=== PATIENT | male | born 1960 | race American Indian/Alaskan Native ===

== ENCOUNTER 2016-11-20 19:56 | Inpatient (IN) | payer MEDICARE ==
[2016-11-20 21:56] LABS: BASO % 0.5 % (0.0-2.0); EOS # 0.1 K/uL (0.0-0.7); EOS % 1.5 % (0.0-4.0); HEMATOCRIT 45.2 % (35.0-51.0); LYMPH # 1.8 K/uL (1.0-4.3); LYMPH % 24.4 % (20.0-40.0); MEAN CELL VOLUME 86.1 fL (80.0-94.0); MEAN CORPUSCULAR HEMOGLOBIN 28.1 pg (27.0-31.0); MEAN CORPUSCULAR HGB CONC 32.6 g/dL (33.0-37.0); MEAN PLATELET VOLUME 9.7 fL (7.2-11.7); MONO # 0.5 K/uL (0.0-0.8); MONO % 7.1 % (0.0-10.0); RED CELL DISTRIBUTION WIDTH 13.9 % (11.5-14.5); WHITE BLOOD COUNT 7.2 K/uL (4.8-10.8)
[2016-11-20 22:02] LABS: CHLORIDE 99 mmol/L (98-107); SODIUM 134 mmol/L (132-148)
[2016-11-20 22:03] LABS: POTASSIUM 4.8 mmol/L (3.6-5.2)
[2016-11-20 22:04] LABS: GFR AFRICAN-AMERICAN 58
[2016-11-20 22:05] LABS: ALB/GLOB RATIO 1.5 (1.0-2.1); ALKALINE PHOSPHATASE 65 U/L (38-126); AST/SGOT 24 U/L (17-59); BILIRUBIN,TOTAL 0.4 mg/dL (0.2-1.3); BLOOD UREA NITROGEN 26 mg/dL (9-20); CARBON DIOXIDE 23 mmol/L (22-30); GLUCOSE,RANDOM 133 mg/dL (75-110); TOTAL PROTEIN 7.9 g/dL (6.3-8.3)
[2016-11-20 22:06] LABS: ALT/SGPT 23 U/L (21-72); CALCIUM 9.6 mg/dl (8.6-10.4)
[2016-11-20] MEDS ORDERED: Home Med 1 UNIT (Pravastatin Sodium [Pravastatin Sodium] 40 MG) PO SCH (23:00)
--- NOTE | 2016-11-20 23:29 | C.PDOC ---
History Of Present Illness 56 y/o male presents to ED with complaint of an episode of chest pain just prior to arrival. Patient states he was watching tv when he suddenly developed chest pain, described as sub-sternal pressure, and became diaphoretic. Patient states he began to feel lightheaded and felt like he was going to pass out. Patient's called EMS and he notes symptoms resolved by the time he arrived to ER. Denies history of chest pain in the past. Patient states he takes aspirin daily, including today. Otherwise, denies fever, chills, shortness of breath, dyspnea, nausea, vomiting, or other associated symptoms. Time Seen by Provider: 11/20/16 22:24 Chief Complaint (Nursing): Chest Pain History Per: Patient History/Exam Limitations: no limitations Onset/Duration Of Symptoms: Days Current Symptoms Are (Timing): Better Quality: Pressure, "Pain" Associated Symptoms: Diaphoresis. denies: Nausea, Dyspnea Recent travel outside of the [place]: No Past Medical History Reviewed: Historical Data, Nursing Documentation, Vital Signs Vital Signs: Last Vital Signs Temp 98.6 F 11/20/16 20:03 Pulse 82 11/20/16 20:03 Resp 20 11/20/16 20:03 BP 136/86 11/20/16 20:03 Pulse Ox 96 11/20/16 23:36 - Medical History PMH: Diabetes, HTN, Hypercholesterolemia Family History: States: Unknown Family Hx - Social History Hx Tobacco Use: No Hx Alcohol Use: Yes (occasionally) Hx Substance Use: No - Immunization History Hx Tetanus Toxoid Vaccination: No Hx Influenza Vaccination: Yes (04/24/2015) Hx Pneumococcal Vaccination: Yes (2012) Review Of Systems Except As Marked, All Systems Reviewed And Found Negative. Constitutional: Negative for: Fever, Chills Cardiovascular: Positive for: Chest Pain. Negative for: Palpitations Respiratory: Negative for: Cough, Shortness of Breath, Wheezing Gastrointestinal: Negative for: Nausea, Vomiting Musculoskeletal: Negative for: Arm Pain Skin: Negative for: Rash Neurological: Negative for: Headache, Dizziness Physical Exam - Physical Exam Appears: Non-toxic, No Acute Distress Skin: Warm, Dry Head: Atraumatic, Normacephalic Chest: Symmetrical, No Tenderness Cardiovascular: Rhythm Regular, No Murmur Respiratory: Normal Breath Sounds, No Rales, No Rhonchi, No Wheezing Gastrointestinal/Abdominal: Soft, No Tenderness Back: Normal Inspection Extremity: Normal ROM, Capillary Refill (< 2 sec. ) Neurological/Psych: Oriented x3, Normal Speech, Normal Cognition ED Course And Treatment - Laboratory Results Result Diagrams: 11/20/16 21:47 11/20/16 21:47 ECG: Interpreted By Me ECG Rhythm: Sinus Rhythm Interpretation Of ECG: LVH Rate From EC (bpm) O2 Sat by Pulse Oximetry: 96 Pulse Ox Interpretation: Normal - Radiology CXR: Interpreted by Me CXR Interpretation: Yes: No Acute Disease Progress Note: CxR, EKG, and bloodwork ordered. Case discussed with Dr. Santoro , who agrees with plan, placed in observation. Disposition - Disposition Disposition: HOSPITALIZED Disposition Time: 10:30 Condition: FAIR - Clinical Impression Clinical Impression: Chest pain - Scribe Statement The provider has reviewed the documentation as recorded by the Gersonibnehemias Mary Provider Scribe Attestation: All medical record entries made by the Scribe were at my direction and personally dictated by me. I have reviewed the chart and agree that the record accurately reflects my personal performance of the history, physical exam, medical decision making, and the department course for this patient. I have also personally directed, reviewed, and agree with the discharge instructions and disposition.
[2016-11-21] MEDS ORDERED: (Novolog) Insulin Aspart, Recombinant 100 u/ml 10 ml vial ONE ×2 (07:48→11:56)
[2016-11-21] MEDS: (Novolog) Insulin Aspart, Recombinant 100 u/ml 10 ml vial SC SCH ×4 (07:49→22:38)
--- NOTE | 2016-11-21 08:15 | RAD ---
PROCEDURE: CHEST RADIOGRAPH, 1 VIEW HISTORY: chest pain COMPARISON: None available. FINDINGS: LUNGS: Clear. PLEURA: No pneumothorax or pleural fluid seen. CARDIOVASCULAR: Normal. OSSEOUS STRUCTURES: No significant abnormalities. VISUALIZED UPPER ABDOMEN: Normal. OTHER FINDINGS: None. IMPRESSION: No active disease.
[2016-11-21] MEDS ORDERED: Ammonium Lactate 12% Lotion (225 g) EXT SCH (10:00)
[2016-11-21] MEDS ORDERED: TRAVOPROST OD SCH (10:00)
[2016-11-21] MEDS ORDERED: (Lantus) Insulin Glargine, Recombinant SC ONE (10:22)
[2016-11-21] MEDS: Enoxaparin 40 mg Syringe SC SCH (10:25)
[2016-11-21] MEDS: (Lantus) Insulin Glargine, Recombinant SC SCH (10:30)
[2016-11-21] MEDS: Pantoprazole 40 mg EC Tab PO SCH (10:31)
--- NOTE | 2016-11-21 17:24 | CARD ---
APPROVED REPORT EKG Measurement Heart [id number] <Conclusion> Normal sinus rhythm Minimal voltage criteria for LVH, may be normal variant Nonspecific T wave abnormality Abnormal ECG
[2016-11-21] MEDS: Ammonium Lactate 12% Lotion (225 g) EXT SCH (18:00)
[2016-11-21] MEDS: Latanoprost 2.5 ml Opht Soln OD SCH (22:37)
--- NOTE | 2016-11-21 23:13 | CP.PCM.HP ---
History of Present Illness - History of Present Illness History of Present Illness: CC: Left sided chest pain HPI: pt is a 56 year old AA male with h/o diabtes, HTN, Hyperlipidemia. 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 he malcom any couh, sore throat, tingling nmbness, headache, chane in urinary and bowel habbits Present on Admission - Present on Admission Any Indicators Present on Admission: No Review of Systems - Review of Systems Systems not reviewed;Unavailable: Acuity of Condition - Constitutional Constitutional: Fatigue, Lethargy, Malaise - EENT Eyes: absent: As Per HPI, Blind Spots, Blurred Vision, Change in Vision, Decreased Night Vision, Diplopia, Discharge, Dry Eye, Exophthalmos, Floaters, Irritation, Itchy Eyes, Loss of Peripheral Vision, Pain, Photophobia, Requires Corrective Lenses, Sees Flashes, Spots in Vision, Tunnel Vision, Other Visual Disturbances, Loss of Vision, Other Nose/Mouth/Throat: absent: As Per HPI, Epistaxis, Nasal Congestion, Nasal Discharge, Nasal Obstruction, Nasal Trauma, Nose Pain, Post Nasal Drip, Sinus Pain, Sinus Pressure, Bleeding Gums, Change in Voice, Dental Pain, Dry Mouth, Dysphagia, Halitosis, Hoarsness, Lip Swelling, Mouth Lesions, Mouth Pain, Odynophagia, Sore Throat, Throat Swelling, Tongue Swelling, Facial Pain, Neck Pain, Neck Mass, Other - Cardiovascular Cardiovascular: Chest Pain, Diaphoresis, Dyspnea, Pain Radiating to Arm/Neck/Jaw - Respiratory Respiratory: absent: As Per HPI, Cough, Dyspnea, Hemoptysis, Dyspnea on Exertion , Wheezing, Snoring, Stridor, Pain on Inspiration, Chest Congestion, Excessive Mucous Production, Change in Mucous Color, Pain with Coughing, Other - Gastrointestinal Gastrointestinal: absent: As Per HPI, Abdominal Pain, Belching, Bloating, Change in Bowel Habits, Change in Stool Character, Coffee Ground Emesis, Constipation, Cramping, Diarrhea, Dyspepsia, Dysphagia, Early Satiety, Excessive Flatus, Fecal Incontinence, Heartburn, Hematemesis, Hematochezia, Loose Stools, Melena, Nausea, Odynophagia, Temesmus, Vomiting, Other - Genitourinary Genitourinary: absent: As Per HPI, Change in Urinary Stream, Difficulty Urinating, Dysuria, Flank Pain, Hematuria, Pyuria, Nocturia, Urinary Incontinence, Urinary Frequency, Urinary Hesitance, Urinary Urgency, Voiding Freq/Small Amts, Freq UTI, Hx Renal/Bladder Calculi, Hx /Renal Surgery, Bladder Distension, Other - Musculoskeletal Musculoskeletal: Muscle Weakness, Radiating Pain into Limb. absent: As Per HPI , Abnormal Gait, Arthralgias, Atrophy, Back Pain, Deformity, Joint Swelling, Limited Range of Motion, Loss of Height, Muscle Cramps, Myalgias, Neck Pain, Numbness, Stiffness, Tingling, Other - Integumentary Integumentary: absent: As Per HPI, Acne, Alopecia, Bleeding Lesions, Change in Hair, Change in Nails, Change in Pigmentation, Changing Lesions, Dry Skin, Erythema, Furuncle, Hirsutism, Lesions, New Lesions, Non-Healing Lesions, Photosensitivity, Pruritus, Rash, Skin Pain, Skin Ulcer, Sores, Striae, Swelling , Unusual Bruising, Wounds, Jaundice, Other Past Patient History - Infectious Disease Hx of Infectious Diseases: None - Past Medical History & Family History Past Medical History?: Yes - Past Social History Smoking Status: Never Smoked - CARDIAC Hx Cardiac Disorders: Yes Hx Hypercholesterolemia: Yes Hx Hypertension: Yes - PULMONARY Hx Respiratory Disorders: No - NEUROLOGICAL Hx Neurological Disorder: No - HEENT Hx HEENT Problems: Yes Other/Comment: LEFT GLASS EYE - RENAL Hx Chronic Kidney Disease: No - ENDOCRINE/METABOLIC Hx Endocrine Disorders: Yes Hx Diabetes Mellitus Type 2: Yes - HEMATOLOGICAL/ONCOLOGICAL Hx Blood Disorders: No - INTEGUMENTARY Hx Dermatological Problems: No - MUSCULOSKELETAL/RHEUMATOLOGICAL Hx Musculoskeletal Disorders: Yes Hx Falls: Yes (hx fall feb 2015) - GASTROINTESTINAL Hx Gastrointestinal Disorders: Yes Hx Diarrhea: Yes - GENITOURINARY/GYNECOLOGICAL Hx Genitourinary Disorders: No - PSYCHIATRIC Hx Psychophysiologic Disorder: No Hx Substance Use: No - SURGICAL HISTORY Hx Surgeries: Yes Hx Eye Surgery: Yes - ANESTHESIA Hx Anesthesia: No Hx Anesthesia Reactions: No Hx Malignant Hyperthermia: No Meds Home Medications: Home Medication List Medication Instructions Recorded Confirmed Type Aspirin [Aspirin Chewable] 81 mg PO DAILY 11/23/16 Rx Carvedilol [Coreg] 3.125 mg PO BID #60 tab 11/23/16 Rx SITagliptin [Januvia] 50 mg PO DAILY #30 tab 11/23/16 Rx Allergies/Adverse Reactions: Allergies Allergy/AdvReac Type Severity Reaction Status Date / Time No Known Allergies Allergy Verified 11/20/16 20:06 Physical Exam - Constitutional Appears: No Acute Distress - Head Exam Head Exam: ATRAUMATIC, NORMAL INSPECTION, NORMOCEPHALIC - Eye Exam Eye Exam: EOMI, Normal appearance, PERRL Pupil Exam: NORMAL ACCOMODATION, PERRL - ENT Exam ENT Exam: Mucous Membranes Moist, Normal Exam - Respiratory Exam Respiratory Exam: Clear to Auscultation Bilateral, NORMAL BREATHING PATTERN - Cardiovascular Exam Cardiovascular Exam: REGULAR RHYTHM, +S1, +S2, +S4 - Rectal Exam Additional comments: enlarged prostrate - Extremities Exam Extremities exam: Positive for: normal inspection - Back Exam Back exam: NORMAL INSPECTION - Neurological Exam Neurological exam: Alert, CN II-XII Intact, Normal Gait, Oriented x3, Reflexes Normal - Psychiatric Exam Psychiatric exam: Normal Affect, Normal Mood - Skin Skin Exam: Dry, Intact, Normal Color, Warm Results - Vital Signs Recent Vital Signs: Last Vital Signs Temp 98.1 F 11/21/16 16:10 Pulse 78 11/21/16 16:10 Resp 20 11/21/16 16:10 BP 111/71 11/21/16 16:10 Pulse Ox 95 11/21/16 16:10 - Labs Result Diagrams: 11/20/16 21:47 11/23/16 17:29 Labs: Laboratory Results - last 24 hr 11/20/16 11/21/16 11/21/16 23:26 04:17 07:26 POC Glucose (mg/dL) 159 H 168 H Total Creatine Kinase 84 CK-MB (Mass) 0.89 Troponin I, Quant < 0.0120 11/21/16 11/21/16 11/21/16 11:16 11:47 17:10 POC Glucose (mg/dL) 231 H 80 Total Creatine Kinase 75 CK-MB (Mass) 0.68 Troponin I, Quant < 0.0120 11/21/16 21:31 POC Glucose (mg/dL) 188 H Total Creatine Kinase CK-MB (Mass) Troponin I, Quant Assessment & Plan (1) HTN (hypertension) Status: Acute (2) Chest pain Assessment and Plan: typical chest pain R/O Acute CT Status: Acute (3) Diabetes mellitus Status: Chronic
[2016-11-22 07:28] LABS: INR 0.9; PARTIAL THROMBOPLASTIN TIME 31 SECONDS (21-34)
--- NOTE | 2016-11-22 07:40 | CARD ---
APPROVED REPORT EKG Measurement Heart [id number] <Conclusion> Normal sinus rhythm Moderate voltage criteria for LVH, may be normal variant Borderline ECG
[2016-11-22] MEDS: (Novolog) Insulin Aspart, Recombinant 100 u/ml 10 ml vial SC SCH ×4 (08:36→22:17)
[2016-11-22] MEDS: Ammonium Lactate 12% Lotion (225 g) EXT SCH ×2 (10:05→17:48)
[2016-11-22] MEDS: (Lantus) Insulin Glargine, Recombinant SC SCH (10:08)
[2016-11-22] MEDS: Enoxaparin 40 mg Syringe SC SCH (10:09)
[2016-11-22] MEDS: Pantoprazole 40 mg EC Tab PO SCH (10:10)
--- NOTE | 2016-11-22 13:42 | CON ---
DATE: 11/22/2016 REASON FOR CONSULTATION: Chest pain. HISTORY OF PRESENT ILLNESS: The patient is a 56-year-old -Stateless male who has a history of hypertension. No known prior cardiac history. He presents because of chest pain that he describes a s tightness associated with diaphoresis and dizziness. The patient denies any associated shortness o f breath or productive cough. The patient denies any fever or chills. The patient denies any syncop e. The patient at this time is chest pain free. SOCIAL HISTORY: Nonsmoker, nondrinker. HOME MEDICATIONS: Including pravastatin 40 mg once a day, omeprazole 40 mg once a day, hydrochloroth iazide 12.5 mg once a day, Zestril at 10 mg once a day, aspirin 81 mg once a day. CURRENT HOSPITAL MEDICATIONS: Aspirin 81 mg once a day, Coreg 3.125 mg twice a day, Crestor 5 mg at bedtime, Januvia 100 mg once a day, Glucophage 850 mg t.i.d., Lovenox 40 mg subcutaneous once a day, hydrochlorothiazide 12.5 mg once a day, Protonix 40 mg once a day, Zestril at 10 mg once a day. REVIEW OF SYSTEMS: No nausea or vomiting. No fever or chills. PHYSICAL EXAMINATION: GENERAL: The patient is a middle-aged male who does not appear to be in any distress. VITAL SIGNS: Blood pressure 110/69, heart rate 83, temperature 98.1, respirations 20. HEENT: Normocephalic. NECK: No JVD. CHEST: Clear. HEART: S1, S2 regular. ABDOMEN: Soft. EXTREMITIES: No edema. EKG revealed sinus rhythm, moderate voltage criteria for LVH. Chest x-ray was unremarkable. There w as no cardiomegaly or lung infiltrate. LABORATORY DATA: SMA-7 is within normal limits except for glucose 133 and BUN of 26. Three sets of troponins are negative. D-dimer is elevated more than 5250. ASSESSMENT: 1. Chest pain, myocardial infarction was ruled out. 2. Rule out pulmonary infarction. 3. Hypertension and diabetes mellitus. RECOMMENDATIONS: Continue current Zestril at 10 mg once a day, subcutaneous Lovenox at 40 mg once a day, hydrochlorothiazide at 12.5 mg once a day, Coreg at 3.125 mg twice a day, Crestor at 5 mg once a day. Discontinue metformin. Continue aspirin 81 mg once a day. Obtain CT angio of the chest to ru le out pulmonary embolus. The patient also scheduled for an echocardiogram. Deepak Sidhu MD cc: [id number] TT: 11/22/2016 13:41:39 Confirmation # [id number] Dictation # [id number] tn
[2016-11-22] MEDS ORDERED: Iodixanol 320 MG/ML 100 ML BOTTLE IV ONE (15:22)
--- NOTE | 2016-11-22 16:10 | CT ---
CT chest with IV contrast Indication: Rule out PE Technique: Contiguous axial images were obtained through the chest with intravenous contrast enhancement. Sagittal and coronal reconstructions were generated and reviewed. This CT exam was performed using 1 or more of the falling dose reduction techniques: Automated exposure control, adjustment of the MAA and/or kV according to patient size, and/or use of iterative reconstruction technique. IV Contrast: 100 mL Visipaque Radiation dose (DLP): 534.36 MGy-cm. Comparison: Chest x-ray performed 11/20/16 Findings: Visualized portions of the inferior thyroid gland appear unremarkable. The mediastinal and hilar vascular structures appear within normal limits. The heart appears within normal limits of size. No large central or segmental pulmonary embolus evident. No focal consolidation. No pleural effusion. No pneumothorax. No suspicious pulmonary nodules measuring greater than 5 mm. Small hiatal hernia. Limited visualization of the upper abdomen appears grossly unremarkable. Degenerative changes of the spine. Impression: No large central or segmental pulmonary embolus identified.
[2016-11-22] MEDS: Latanoprost 2.5 ml Opht Soln OD SCH (21:58)
[2016-11-23] MEDS: (Novolog) Insulin Aspart, Recombinant 100 u/ml 10 ml vial SC SCH ×3 (08:45→16:30)
--- NOTE | 2016-11-23 09:11 | CP.PCM.PN ---
Subjective - Date & Time of Evaluation Date of Evaluation: 11/22/16 Time of Evaluation: 10:27 - Subjective Subjective: Pt is feeling better, underwent CT chest with P-Protocol, her echocardiogram is pending Objective - Vital Signs/Intake and Output Vital Signs (last 24 hours): Temp Pulse Resp BP Pulse Ox 97.8 F 69 17 134/81 98 11/23/16 07:00 11/23/16 07:00 11/23/16 07:00 11/23/16 07:00 11/23/16 07:00 - Medications Medications: Current Medications Aspirin (Aspirin Chewable) 81 mg PO DAILY [facility] Last Admin: 11/22/16 10:09 Dose: 81 mg Carvedilol (Coreg) 3.125 mg PO BID [facility] Last Admin: 11/22/16 17:40 Dose: 3.125 mg Enoxaparin Sodium (Lovenox) 40 mg SC DAILY [facility] Last Admin: 11/22/16 10:09 Dose: 40 mg Hydrochlorothiazide (Microzide) 12.5 mg PO DAILY [facility] Last Admin: 11/22/16 10:10 Dose: 12.5 mg Insulin Aspart (Novolog) 0 unit SC [facility] PRN Reason: Protocol Last Admin: 11/23/16 08:45 Dose: 1 unit Insulin Glargine (Lantus) 20 unit SC DAILY [facility] Last Admin: 11/22/16 10:08 Dose: 20 units Lactic Acid (Lac-Hydrin 12% Lotion (225 G)) 0 gm EXT BID [facility] Last Admin: 11/22/16 17:48 Dose: 225 appl Latanoprost (Xalatan Opht) 0 ml OD [facility] Last Admin: 11/22/16 21:58 Dose: 2.5 ml Lisinopril (Zestril) 10 mg PO DAILY [facility] Last Admin: 11/22/16 10:09 Dose: 10 mg Pantoprazole Sodium (Protonix Ec Tab) 40 mg PO DAILY [facility] Last Admin: 11/22/16 10:10 Dose: 40 mg Rosuvastatin Calcium (Crestor) 5 mg PO HS [facility] Last Admin: 11/22/16 21:58 Dose: 5 mg Sitagliptin Phosphate (Januvia) 100 mg PO DAILY [facility] Last Admin: 11/22/16 10:10 Dose: 100 mg - Labs Labs: PT 10.5 SECONDS (9.7-12.2) 11/22/16 06:15 INR 0.9 11/22/16 06:15 APTT 31 SECONDS (21-34) 11/22/16 06:15 - Constitutional Appears: No Acute Distress - Head Exam Head Exam: ATRAUMATIC, NORMAL INSPECTION, NORMOCEPHALIC - Eye Exam Eye Exam: EOMI, Normal appearance, PERRL Pupil Exam: NORMAL ACCOMODATION, PERRL - Respiratory Exam Respiratory Exam: Clear to Ausculation Bilateral, NORMAL BREATHING PATTERN - Cardiovascular Exam Cardiovascular Exam: REGULAR RHYTHM, +S1, +S2. absent: Murmur - GI/Abdominal Exam GI & Abdominal Exam: Soft, Normal Bowel Sounds. absent: Tenderness Assessment and Plan (1) HTN (hypertension) Status: Acute (2) Chest pain Status: Acute (3) Diabetes mellitus Status: Chronic (4) Cardiomyopathy Assessment & Plan: with low ejection fraction Status: Acute
[2016-11-23] MEDS: Pantoprazole 40 mg EC Tab PO SCH (09:44)
[2016-11-23] MEDS: (Lantus) Insulin Glargine, Recombinant SC SCH (09:44)
[2016-11-23] MEDS: Enoxaparin 40 mg Syringe SC SCH (09:44)
--- NOTE | 2016-11-23 13:04 | CP.PCM.PN ---
Subjective - Date & Time of Evaluation Date of Evaluation: 11/23/16 Time of Evaluation: 10:31 - Subjective Subjective: Pt is feeling better, underwent CT chest with P-Protocol, her echocardiogram is pending Objective - Vital Signs/Intake and Output Vital Signs (last 24 hours): Temp Pulse Resp BP Pulse Ox 97.8 F 86 17 134/81 98 11/23/16 07:00 11/23/16 08:20 11/23/16 07:00 11/23/16 07:00 11/23/16 07:00 - Medications Medications: Current Medications Aspirin (Aspirin Chewable) 81 mg PO DAILY [facility] Last Admin: 11/22/16 10:09 Dose: 81 mg Carvedilol (Coreg) 3.125 mg PO BID [facility] Last Admin: 11/23/16 09:44 Dose: 3.125 mg Enoxaparin Sodium (Lovenox) 40 mg SC DAILY [facility] Last Admin: 11/23/16 09:44 Dose: 40 mg Hydrochlorothiazide (Microzide) 12.5 mg PO DAILY [facility] Last Admin: 11/23/16 09:44 Dose: 12.5 mg Insulin Aspart (Novolog) 0 unit SC [facility] PRN Reason: Protocol Last Admin: 11/23/16 08:45 Dose: 1 unit Insulin Glargine (Lantus) 20 unit SC DAILY [facility] Last Admin: 11/23/16 09:44 Dose: 20 units Lactic Acid (Lac-Hydrin 12% Lotion (225 G)) 0 gm EXT BID [facility] Last Admin: 11/22/16 17:48 Dose: 225 appl Latanoprost (Xalatan Opht) 0 ml OD [facility] Last Admin: 11/22/16 21:58 Dose: 2.5 ml Lisinopril (Zestril) 10 mg PO DAILY [facility] Last Admin: 11/23/16 09:44 Dose: 10 mg Pantoprazole Sodium (Protonix Ec Tab) 40 mg PO DAILY [facility] Last Admin: 11/23/16 09:44 Dose: 40 mg Rosuvastatin Calcium (Crestor) 5 mg PO HS [facility] Last Admin: 11/22/16 21:58 Dose: 5 mg Sitagliptin Phosphate (Januvia) 100 mg PO DAILY [facility] Last Admin: 11/23/16 09:44 Dose: 100 mg - Labs Labs: PT 10.5 SECONDS (9.7-12.2) 11/22/16 06:15 INR 0.9 11/22/16 06:15 APTT 31 SECONDS (21-34) 11/22/16 06:15 - Constitutional Appears: No Acute Distress - Head Exam Head Exam: ATRAUMATIC, NORMAL INSPECTION, NORMOCEPHALIC - Eye Exam Eye Exam: EOMI, Normal appearance, PERRL Pupil Exam: NORMAL ACCOMODATION, PERRL - Respiratory Exam Respiratory Exam: Clear to Ausculation Bilateral, NORMAL BREATHING PATTERN - Cardiovascular Exam Cardiovascular Exam: REGULAR RHYTHM, +S1, +S2. absent: Murmur - GI/Abdominal Exam GI & Abdominal Exam: Normal Bowel Sounds Assessment and Plan (1) HTN (hypertension) Status: Acute (2) Chest pain Status: Acute (3) Diabetes mellitus Status: Chronic (4) Cardiomyopathy Status: Acute
[2016-11-23 16:04] VITALS: BP 132/80; PULSE 82; RESP 20; TEMP 98.1; O2SAT 97
--- NOTE | 2016-11-23 17:21 | CP.PCM.HP ---
Past Patient History - Infectious Disease Hx of Infectious Diseases: None - Past Medical History & Family History Past Medical History?: Yes - Past Social History Smoking Status: Never Smoked - CARDIAC Hx Cardiac Disorders: Yes Hx Hypercholesterolemia: Yes Hx Hypertension: Yes - PULMONARY Hx Respiratory Disorders: No - NEUROLOGICAL Hx Neurological Disorder: No - HEENT Hx HEENT Problems: Yes Other/Comment: LEFT GLASS EYE - RENAL Hx Chronic Kidney Disease: No - ENDOCRINE/METABOLIC Hx Endocrine Disorders: Yes Hx Diabetes Mellitus Type 2: Yes - HEMATOLOGICAL/ONCOLOGICAL Hx Blood Disorders: No - INTEGUMENTARY Hx Dermatological Problems: No - MUSCULOSKELETAL/RHEUMATOLOGICAL Hx Musculoskeletal Disorders: Yes Hx Falls: Yes (hx fall feb 2015) - GASTROINTESTINAL Hx Gastrointestinal Disorders: Yes Hx Diarrhea: Yes - GENITOURINARY/GYNECOLOGICAL Hx Genitourinary Disorders: No - PSYCHIATRIC Hx Psychophysiologic Disorder: No Hx Substance Use: No - SURGICAL HISTORY Hx Surgeries: Yes Hx Eye Surgery: Yes - ANESTHESIA Hx Anesthesia: No Hx Anesthesia Reactions: No Hx Malignant Hyperthermia: No Meds Home Medications: Home Medication List Medication Instructions Recorded Confirmed Type Aspirin [Aspirin Chewable] 81 mg PO DAILY 11/23/16 Rx Allergies/Adverse Reactions: Allergies Allergy/AdvReac Type Severity Reaction Status Date / Time No Known Allergies Allergy Verified 11/20/16 20:06 Results - Vital Signs Recent Vital Signs: Last Vital Signs Temp 98.1 F 11/23/16 16:03 Pulse 82 11/23/16 16:03 Resp 20 11/23/16 16:03 BP 132/80 11/23/16 16:03 Pulse Ox 97 11/23/16 16:03 - Labs Result Diagrams: 11/20/16 21:47 11/20/16 21:47 Labs: Laboratory Results - last 24 hr 11/22/16 11/23/16 11/23/16 21:43 06:50 14:13 POC Glucose (mg/dL) 187 H 168 H Total Creatine Kinase 59 CK-MB (Mass) 0.57 Troponin I, Quant < 0.0120
--- NOTE | 2016-11-23 17:22 | PCM.HF ---
Heart Failure Core Measure - Heart Failure Ejection Fraction: 40 % or Greater BRYANNA Inhibitor Prescribed: Yes Beta-Lg Prescribed: Carvedilol Angiotensin II Receptor Lg Prescribed: No Contraindication/Reason for not providing: on bryanna AnticoagulationTherapy for Atrial Fibrillation/Atrialflutter: No Contraindication/Reason for not providing: no hx of afib Aldosterone Antagonist Prescribed: No Contraindication/Reason for not providing: EF >40 Hydralazine Nitrate Prescribed: No Contraindication/Reason for not providing: ef>40 Implantable Cardioverter Defibrillator Therapy: No Contraindication/Reason for not providing: ef>40 Cardiac Resynchronization Therapy Prescribed: No Contraindication/Reason for not providing: ef>40 - Follow up Will be discharged to: Home Follow Up Date (must be within 7 days from discharge): 11/28/16 Follow Up Time: 09:00
--- NOTE | 2016-11-23 17:22 | CP.PCM.PN ---
Subjective - Date & Time of Evaluation Date of Evaluation: 11/23/16 Time of Evaluation: 10:45 - Subjective Subjective: Pt seen and examine d today states feels better, denies any chest pain, sob, palpitation, headache dizziness No overnight events recorded on monitor No events reported by RN troponin x 3 negative Objective - Vital Signs/Intake and Output Vital Signs (last 24 hours): Temp Pulse Resp BP Pulse Ox 98.1 F 82 20 132/80 97 11/23/16 16:03 11/23/16 16:03 11/23/16 16:03 11/23/16 16:03 11/23/16 16:03 - Medications Medications: Current Medications Aspirin (Aspirin Chewable) 81 mg PO DAILY [facility] Last Admin: 11/22/16 10:09 Dose: 81 mg Carvedilol (Coreg) 3.125 mg PO BID [facility] Last Admin: 11/23/16 09:44 Dose: 3.125 mg Enoxaparin Sodium (Lovenox) 40 mg SC DAILY [facility] Last Admin: 11/23/16 09:44 Dose: 40 mg Hydrochlorothiazide (Microzide) 12.5 mg PO DAILY [facility] Last Admin: 11/23/16 09:44 Dose: 12.5 mg Insulin Aspart (Novolog) 0 unit SC [facility] PRN Reason: Protocol Last Admin: 11/23/16 13:10 Dose: 1 unit Insulin Glargine (Lantus) 20 unit SC DAILY [facility] Last Admin: 11/23/16 09:44 Dose: 20 units Lactic Acid (Lac-Hydrin 12% Lotion (225 G)) 0 gm EXT BID [facility] Last Admin: 11/22/16 17:48 Dose: 225 appl Latanoprost (Xalatan Opht) 0 ml OD HS [facility] Last Admin: 11/22/16 21:58 Dose: 2.5 ml Lisinopril (Zestril) 10 mg PO DAILY [facility] Last Admin: 11/23/16 09:44 Dose: 10 mg Pantoprazole Sodium (Protonix Ec Tab) 40 mg PO DAILY [facility] Last Admin: 11/23/16 09:44 Dose: 40 mg Rosuvastatin Calcium (Crestor) 5 mg PO HS [facility] Last Admin: 11/22/16 21:58 Dose: 5 mg Sitagliptin Phosphate (Januvia) 100 mg PO DAILY [facility] Last Admin: 11/23/16 09:44 Dose: 100 mg - Labs Labs: PT 10.5 SECONDS (9.7-12.2) 11/22/16 06:15 INR 0.9 11/22/16 06:15 APTT 31 SECONDS (21-34) 11/22/16 06:15 Assessment and Plan - Assessment and Plan (Free Text) Assessment: 56 yr old male admitted for chest farris troponin x 4 negative, ekg- NSR - no ST - T WAVE CHANGES d- dimer elevated CT chest - negative for PE ( See full report for details ) venous duplex LE - negative ECHO - result - pending seen by Dr. Espinal, cleared for discharge from cardiology standpoint and stress test out patient D/W Dr. Santoro, stable for discharge home today and f/u with Dr. Santoro office in 1 week Discharge instructions discussed with patient., who understands an d agrees with plan Pt instructed to returns to ED if symptoms returns or any other concerning symptoms
--- NOTE | 2016-11-23 17:35 | PN ---
DATE: 11/23/2016 SUBJECTIVE: The patient did report sharp left inframammary chest pain earlier. He denies any shortn ess of breath. OBJECTIVE: VITAL SIGNS: Blood pressure 133/80, heart rate 82, temperature 98.1, respirations 20. HEENT: Normocephalic. NECK: No JVD. CHEST: Clear. HEART: S1, S2 regular. EXTREMITIES: No edema. LABORATORIES: A total of 5 sets of troponins were negative. Venous Doppler of lower extremity preliminary report is negative. CT angio: No large central pulmonary embolism. A total of three 12-lead EKGs done in the hospital none of them showed any acute ischemic EKG changes . ASSESSMENT: 1. Atypical chest pain. 2. Myocardial infarction is ruled out. 3. Hypertension. 4. Diabetes mellitus. RECOMMENDATIONS: Continue current Zestril, hydrochlorothiazide, Coreg, Crestor and aspirin. [facility] ient will be scheduled for a treadmill stress test as an outpatient. Deepak Sidhu MD cc: [id number] TT: 11/23/2016 17:35:02 Confirmation # [id number] Dictation # [id number] suhail
[2016-11-23 17:43] LABS: CHLORIDE 96 mmol/L (98-107); SODIUM 134 mmol/L (132-148)
[2016-11-23 17:44] LABS: POTASSIUM 4.3 mmol/L (3.6-5.2)
[2016-11-23 17:46] LABS: BLOOD UREA NITROGEN 24 mg/dL (9-20); CARBON DIOXIDE 25 mmol/L (22-30); GFR AFRICAN-AMERICAN > 60
[2016-11-23 17:47] LABS: CALCIUM 9.3 mg/dl (8.6-10.4); GLUCOSE,RANDOM 181 mg/dL (75-110)
[2016-11-23] MEDS: Ammonium Lactate 12% Lotion (225 g) EXT SCH (18:52)
--- NOTE | 2016-11-24 00:01 | CP.PCM.DIS ---
Provider - Provider Date of Admission: 11/20/16 22:41 Attending physician: Flip Santoro MD Time Spent in preparation of Discharge (in minutes): 30 Diagnosis - Discharge Diagnosis (1) HTN (hypertension) Status: Acute (2) Chest pain Status: Acute (3) Diabetes mellitus Status: Chronic (4) Cardiomyopathy Status: Acute Hospital Course - Lab Results Lab Results: Most Recent Lab Values WBC 7.2 K/uL (4.8-10.8) 11/20/16 21:47 RBC 5.25 Mil/uL (4.40-5.90) 11/20/16 21:47 Hgb 14.7 g/dL (12.0-18.0) 11/20/16 21:47 Hct 45.2 % (35.0-51.0) 11/20/16 21:47 MCV 86.1 fL (80.0-94.0) 11/20/16 21:47 MCH 28.1 pg (27.0-31.0) 11/20/16 21:47 MCHC 32.6 g/dL (33.0-37.0) L 11/20/16 21:47 RDW 13.9 % (11.5-14.5) 11/20/16 21:47 Plt Count 184 K/uL (130-400) 11/20/16 21:47 MPV 9.7 fL (7.2-11.7) 11/20/16 21:47 Neut % (Auto) 66.5 % (50.0-75.0) 11/20/16 21:47 Lymph % (Auto) 24.4 % (20.0-40.0) 11/20/16 21:47 [place] % (Auto) 7.1 % (0.0-10.0) 11/20/16 21:47 Eos % (Auto) 1.5 % (0.0-4.0) 11/20/16 21:47 Baso % (Auto) 0.5 % (0.0-2.0) 11/20/16 21:47 Neut # 4.8 K/uL (1.8-7.0) 11/20/16 21:47 Lymph # 1.8 K/uL (1.0-4.3) 11/20/16 21:47 [place] # 0.5 K/uL (0.0-0.8) 11/20/16 21:47 Eos # 0.1 K/uL (0.0-0.7) 11/20/16 21:47 Baso # 0.0 K/uL (0.0-0.2) 11/20/16 21:47 PT 10.5 SECONDS (9.7-12.2) 11/22/16 06:15 INR 0.9 11/22/16 06:15 APTT 31 SECONDS (21-34) 11/22/16 06:15 D-Dimer, Quantitative > 5250 ng/mlDDU (0-243) H 11/22/16 06:15 Sodium 134 mmol/L (132-148) 11/23/16 17:29 Potassium 4.3 mmol/L (3.6-5.2) 11/23/16 17:29 Chloride 96 mmol/L (98-107) L 11/23/16 17:29 Carbon Dioxide 25 mmol/L (22-30) 11/23/16 17:29 Anion Gap 17 (10-20) 11/23/16 17:29 BUN 24 mg/dL (9-20) H 11/23/16 17:29 Creatinine 1.4 MG/DL (0.8-1.5) 11/23/16 17:29 Est GFR ( Amer) > 60 11/23/16 17:29 Est GFR (Non-Af Amer) 52 11/23/16 17:29 POC Glucose (mg/dL) 191 mg/dL (65-110) H 11/23/16 16:29 Random Glucose 181 mg/dL (75-110) H 11/23/16 17:29 Calcium 9.3 mg/dl (8.6-10.4) 11/23/16 17:29 Total Bilirubin 0.4 mg/dL (0.2-1.3) 11/20/16 21:47 AST 24 U/L (17-59) 11/20/16 21:47 ALT 23 U/L (21-72) 11/20/16 21:47 Alkaline Phosphatase 65 U/L (38-126) 11/20/16 21:47 Total Creatine Kinase 59 U/L (55-170) 11/23/16 14:13 CK-MB (Mass) 0.57 ng/mL (0.0-3.38) 11/23/16 14:13 Troponin I < 0.0120 ng/mL (0.00-0.120) 11/22/16 14:21 Troponin I, Quant < 0.0120 ng/mL (0.00-0.120) 11/23/16 14:13 NT-Pro-B Natriuret Pep < 11.1 pg/mL (0-900) 11/20/16 21:47 Total Protein 7.9 g/dL (6.3-8.3) 11/20/16 21:47 Albumin 4.7 g/dL (3.5-5.0) 11/20/16 21:47 Globulin 3.2 gm/dL (2.2-3.9) 11/20/16 21:47 Albumin/Globulin Ratio 1.5 (1.0-2.1) 11/20/16 21:47 - Hospital Course Hospital Course: Pt seen and examine d today states feels better, denies any chest pain, sob, palpitation, headache dizziness No overnight events recorded on monitor No events reported by RN troponin x 3 negative Discharge Exam - Head Exam Head Exam: ATRAUMATIC, NORMAL INSPECTION, NORMOCEPHALIC - Eye Exam Eye Exam: EOMI, Normal appearance, PERRL Pupil Exam: NORMAL ACCOMODATION, PERRL - ENT Exam ENT Exam: Mucous Membranes Moist - Respiratory Exam Respiratory Exam: Clear to PA & Lateral, NORMAL BREATHING PATTERN - Cardiovascular Exam Cardiovascular Exam: +S1, +S2 - GI/Abdominal Exam GI & Abdominal Exam: Normal Bowel Sounds Discharge Plan - Discharge Medications Prescriptions: Carvedilol [Coreg] 3.125 mg PO BID #60 tab SITagliptin [Januvia] 50 mg PO DAILY #30 tab - Follow Up Plan Condition: FAIR Disposition: HOME/ ROUTINE Instructions: Carvedilol (By mouth), Sitagliptin (By mouth), Heart Failure (DC) , Chest Pain (DC), Diabetic Foot Care (DC), Basic Carbohydrate Counting (DC), Meal Planning with Diabetes Exchanges (DC) Additional Instructions: Please f/u with Dr. Santoro office in 1 week stress test out patient at [facility] - call for appointment [phone] ( By Dr. Sidhu ) Continue medication as per Med. REc. stop taking metformin Referrals: Deepak Sidhu MD [Staff Provider] - Flip Santoro MD [Staff Provider] -
--- NOTE | 2016-11-24 03:10 | CARD ---
APPROVED REPORT EXAM: Two-dimensional and M-mode echocardiogram with Doppler and color Doppler. Other Information Quality : GoodRhythm : NSR INDICATION Abnormal EKG/Arrhythmia Cardiomyopathy Congestive Heart Failure RISK FACTORS Hypertension Hyperlipidemia Diabetes M-Mode DIMENSIONS RVDd1.77 (2.1-3.2cm)Left Atrium (MM)3.58 (2.5-4.0cm) IVSd1.44 (0.7-1.1cm)Aortic Root3.13 (2.2-3.7cm) LVDd4.98 (4.0-5.6cm)Aortic Cusp Exc.1.99 (1.5-2.0cm) PWd1.77 (0.7-1.1cm)FS (%) 26 % LVDs3.69 (2.0-3.8cm)LVEF (%)51 (>50%) Aortic Valve AoV Peak Mmodsxgc006.7cm/Silverio Peak GR.6mmHgAI P 1/2 [id number] Mitral Valve MV E Qpzejtbd10.1cm/sMV A Zbofedpl70.1cm/sE/A ratio0.9 TDI E/Lateral E'0.0E/Medial E'0.0 Tricuspid Valve TR Peak Lebfpbwh585cz/sTR Peak Gr.79lwMbMZNT09glPh LEFT VENTRICLE The left ventricle is normal size. There is normal left ventricular wall thickness. Left ventricle systolic function is normal. The Ejection Fraction is 50-55%. There is normal LV segmental wall motion. Tissue Doppler imaging reveals abnormal left ventricular diastolic dysfunction. RIGHT VENTRICLE The right ventricle is normal size. There is normal right ventricular wall thickness. The right ventricular systolic function is normal. ATRIA The left atrium size is normal. The right atrium size is normal. The interatrial septum is intact with no evidence for an atrial septal defect. AORTIC VALVE The aortic valve is normal in structure. No aortic regurgitation is present. There is no aortic valvular stenosis. There is no aortic valvular vegetation. MITRAL VALVE The mitral valve is normal in structure. There is no evidence of mitral valve prolapse. There is no mitral valve stenosis. Mitral regurgitation is trace. TRICUSPID VALVE The tricuspid valve is normal in structure. There is trace tricuspid regurgitation. Right ventricular systolic pressure is estimated at less than 30 mmHg. There is no pulmonary hypertension. There is no tricuspid valve stenosis. PULMONIC VALVE The pulmonic valve is not well visualized. There is no pulmonic valvular regurgitation. GREAT VESSELS The aortic root is normal in size. PERICARDIAL EFFUSION There is no pericardial effusion. <Conclusion> Left ventricle systolic function is normal. The Ejection Fraction is 50-55%. Diastolic dysfunction. No aortic regurgitation is present. Mitral regurgitation is trace. There is trace tricuspid regurgitation. There is no pulmonary hypertension. There is no pulmonic valvular regurgitation.
--- NOTE | 2016-11-24 07:52 | CARD ---
APPROVED REPORT EKG Measurement Heart [id number] OR 146P31 [id number] <Conclusion> Normal sinus rhythm Normal ECG
--- NOTE | 2016-11-24 08:28 | VASCLAB ---
PROCEDURE: Lower Extremity Venous Duplex Exam. HISTORY: r/o DVT PRIORS: None. TECHNIQUE: Bilateral common femoral, femoral, popliteal and posterior tibial, peroneal and great saphenous veins were evaluated. Flow was assessed with color Doppler, compressibility, assessment of phasic flow and augmentation response. Report prepared by Alonso Camejo, JOHN, RVT FINDINGS: RIGHT: 1. Common Femoral Vein: 1.1. Compressibility - Fully compressible: Thrombus - None : Flow - Phasic: Augmentation -Normal: Reflux - None. 2. Femoral Vein: 2.1. Compressibility - Fully compressible: Thrombus - None : Flow - Phasic: Augmentation -Normal: Reflux - None. 3. Popliteal Vein: 3.1. Compressibility - Fully compressible: Thrombus - None : Flow - Phasic: Augmentation -Normal: Reflux - None. 4. Posterior Tibial Vein: 4.1. Compressibility - Fully compressible: Thrombus - None: Flow - Phasic: Augmentation -Normal: Reflux - None. 5. Peroneal Vein: 5.1. Compressibility - Fully compressible: Thrombus - None: Flow - Phasic: Augmentation -Normal: Reflux - None. 6. Great Saphenous Vein: 6.1. Compressibility - Fully compressible: Thrombus - None: Flow - Phasic: Augmentation - Normal: Reflux - None. LEFT: 1. Common Femoral Vein: 1.1. Compressibility - Fully compressible: Thrombus - None: Flow - Phasic: Augmentation -Normal: Reflux - None. 2. Femoral Vein: 2.1. Compressibility - Fully compressible: Thrombus - None: Flow - Phasic: Augmentation -Normal: Reflux - None. 3. Popliteal Vein: 3.1. Compressibility - Fully compressible: Thrombus - None : Flow - Phasic: Augmentation -Normal: Reflux - None. 4. Posterior Tibial Vein: 4.1. Compressibility - Fully compressible: Thrombus - None: Flow - Phasic: Augmentation -Normal: Reflux - None. 5. Peroneal Vein: 5.1. Compressibility - Fully compressible: Thrombus - None: Flow - Phasic: Augmentation -Normal: Reflux - None. 6. Great Saphenous Vein: 6.1. Compressibility - Fully compressible: Thrombus - None: Flow - Phasic: Augmentation - Normal: Reflux - None. OTHER FINDINGS: Right: None significant. Left: None significant. IMPRESSION: Right: No evidence of deep or superficial vein thrombosis of the right lower extremity. Normal valve function noted of the right side. Left: No evidence of deep or superficial vein thrombosis of the left lower extremity. Normal valve function noted of the left side.
--- NOTE | 2017-01-03 08:05 | CARD ---
APPROVED REPORT EKG Measurement Heart [id number] [place] 142P27 [id number] <Conclusion> Normal sinus rhythm Minimal voltage criteria for LVH, may be normal variant Borderline ECG
== END 2016-11-23 18:45 | disposition home or self-care (01) | DRG 313 ==
LOC: C.ER 19:56 → C.9E 22:36 → OBSVTOIN 22:41 → C.6T 11-21 13:04
PROVIDERS: ADMIT Internal Medicine; ATTEND Internal Medicine
DX: R07.89 Other chest pain (principal); I42.9 Cardiomyopathy, unspecified; E11.9 Type 2 diabetes mellitus without complications; I10 Essential (primary) hypertension; E78.00 Pure hypercholesterolemia, unspecified; E78.5 Hyperlipidemia, unspecified

== ENCOUNTER 2017-11-07 12:26 | Emergency (ER) | payer MEDICARE ==
[2017-11-07 12:50] VITALS: RESP 18
[2017-11-07] MEDS ORDERED: Tetracaine 0.5% Ophth 2 ML BOTTLE OD ONE (15:30)
[2017-11-07] MEDS ORDERED: Tetracaine 0.5% Ophth (OR ONLY) ONE (15:37)
--- NOTE | 2017-11-07 15:49 | C.PDOC ---
History Of Present Illness <Jordan Espinoza - Last Filed: 11/07/17 15:36> <Latasha Wong DO - Last Filed: 11/07/17 16:39> Patient is a 57 year old male with PMHx diabetes and glaucoma who presents with complaint of vision loss from right eye. Patient has had decreased vision in right eye for past several days but today he states peripheral visual flynn narrowed and his vision blackened. Patient reports needing assistance to walk and navigate bus due to decreased vision. Patient states he took all medications today including his Travatan drop for right eye. 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 Patient not currently complaining of pain or pressure in eye, only visual deficits. (Latasha Wong DO) <Jordan Espinoza - Last Filed: 11/07/17 15:36> History Per: Patient Onset/Duration Of Symptoms: Days Current Symptoms Are (Timing): Worse Injury To Eye?: No Quality: Pressure. denies: Sharp, Dull, Burning, Aching, Tightness Wears Contact Lens?: No Associated Symptoms: Decreased Vision <Latasha Wong DO - Last Filed: 11/07/17 16:39> Time Seen by Provider: 11/07/17 14:44 Chief Complaint (Nursing): Eye Problem Past Medical History - Medical History PMH: Diabetes, HTN, Hypercholesterolemia Denies: Chronic Kidney Disease Family History: States: Unknown Family Hx - Social History Hx Tobacco Use: No Hx Alcohol Use: Yes Hx Substance Use: No - Immunization History Hx Tetanus Toxoid Vaccination: No Hx Influenza Vaccination: Yes (04/24/2015) Hx Pneumococcal Vaccination: Yes (2012) <Jordan Espinoza - Last Filed: 11/07/17 15:36> - Medical History PMH: Diabetes, HTN, Hypercholesterolemia Other PMH: Glaucoma Family History: States: Unknown Family Hx - Social History Hx Tobacco Use: No Hx Alcohol Use: Yes Hx Substance Use: No - Immunization History Hx Tetanus Toxoid Vaccination: No <Latasha Wong DO - Last Filed: 11/07/17 16:39> Vital Signs: Last Vital Signs Temp 97.7 F 11/07/17 15:58 Pulse 72 11/07/17 15:58 Resp 18 11/07/17 15:58 BP 153/94 H 11/07/17 15:58 Pulse Ox 98 11/07/17 15:58 Review Of Systems Constitutional: Negative for: Fever, Chills Eyes: Positive for: Vision Change ENT: Negative for: Ear Pain, Nose Pain Cardiovascular: Negative for: Chest Pain, Palpitations, Orthopnea Respiratory: Negative for: Cough, Shortness of Breath Gastrointestinal: Negative for: Nausea, Vomiting, Abdominal Pain, Diarrhea Genitourinary: Negative for: Dysuria Musculoskeletal: Negative for: Neck Pain, Back Pain Skin: Negative for: Rash Neurological: Negative for: Weakness, Numbness <Latasha Wong DO - Last Filed: 11/07/17 16:39> Physical Exam - Physical Exam Appears: Non-toxic, No Acute Distress, Chronically Ill Skin: Warm, Dry Head: Atraumatic, Normacephalic Eye(s): bilateral: Other (Right eye tonometer reading 38mmHg, diffuse conjunctival injection, retinal vasculature visualized), right: Abnormal Pupil ( right pupil small, minimal change with light) Nose: Normal Oral Mucosa: Moist Neck: Normal ROM Chest: Symmetrical Cardiovascular: Rhythm Irregular Respiratory: Normal Breath Sounds Gastrointestinal/Abdominal: Soft, No Tenderness Extremity: No Tenderness, No Calf Tenderness Neurological/Psych: Normal Speech Gait: Unsteady (due to visual deficits) <Latasha Wong DO - Last Filed: 11/07/17 16:39> ED Course And Treatment O2 Sat by Pulse Oximetry: 99 <Jordan Espinoza - Last Filed: 11/07/17 15:36> Progress Note: 15:30 tetracaine drops placed in right eye for tonometry. Pressure reading 38mmHg. Patient's family practitioner, Dr. Ley office called, informed doctor had in April. Dr. Ca, who took over Dr. Ley's patients, called. She defers to local family practitioner donor services specialist. Dr. Huston donor services specialist for ophthalmology, referred to Dr. Villalobos, [facility]. [facility] family practitioner, Dr. Villalobos called, they requested patient be sent immediately. Patient given Diamox 250mg PO stat, timolol 0.5% drop placed in right eye. <Latasha Wong DO - Last Filed: 11/07/17 16:39> Medical Decision Making: sub-acute R eye vision loss sent STAT to Dr. Villalobos @ [facility] @ [address] via [employer] (Jordan Espinoza) Disposition Doctor Will See Patient In The: Office Counseled Patient/Family Regarding: Studies Performed, Diagnosis - Disposition Disposition Time: 15:50 <Jordan Espinoza - Last Filed: 11/07/17 15:36> Doctor Will See Patient In The: Office Counseled Patient/Family Regarding: Studies Performed, Diagnosis, Need For Followup <Latasha Wong DO - Last Filed: 11/07/17 16:39> - Disposition Referrals: Brayden Villalobos MD [Staff Provider] - Disposition: HOME/ ROUTINE Condition: GOOD Additional Instructions: follow-up immediately- taken by staff- at Opthlmologists office. Instructions: Angle-Closure Glaucoma Forms: [employer] (Tajik) - Clinical Impression Clinical Impression: Acute loss of vision - PA / DAIRY LABORATORY TECHNICIAN / Resident Statement DEANA has reviewed & agrees with the documentation as recorded. DEANA has examined the patient and agrees with the treatment plan. <Latahsa Wong DO - Last Filed: 11/07/17 16:39>
[2017-11-07 16:02] VITALS: BP 153/94; PULSE 72; TEMP 97.7; O2SAT 98
--- NOTE | 2017-11-07 16:17 | RAD ---
PROCEDURE: CHEST RADIOGRAPH, 1 VIEW HISTORY: SOB COMPARISON: 11/20/2016 FINDINGS: LUNGS: Clear. PLEURA: No pneumothorax or pleural fluid seen. CARDIOVASCULAR: No radiographic findings to suggest acute or significant cardiovascular disease. OSSEOUS STRUCTURES: No significant abnormalities. VISUALIZED UPPER ABDOMEN: Normal. OTHER FINDINGS: None. IMPRESSION: No active disease. No acute/significant interval changes.
== END 2017-11-07 16:05 | disposition home or self-care (01) ==
LOC: C.ER 12:26
DX: H54.61 Unqualified visual loss, right eye, normal vision left eye (principal); I10 Essential (primary) hypertension; E11.9 Type 2 diabetes mellitus without complications; E78.00 Pure hypercholesterolemia, unspecified

== ENCOUNTER 2018-05-06 17:44 | Observation (INO) | payer MEDICARE ==
--- NOTE | 2018-05-06 19:11 | C.PDOC ---
History Of Present Illness 57 year old male presents to the ED complaining of dizziness since yesterday. Reports he ate a sandwich from [employer] and later that night he started vomiting and having diarrhea. Notes he had a syncopal episode this morning while he was sitting down in the toilet. He does not recall the event. His heard the noise and found him. Denies any weakness, head injury, or any trauma. Time Seen by Provider: 05/06/18 19:11 Chief Complaint (Nursing): High Blood Sugar History Per: Patient History/Exam Limitations: no limitations Onset/Duration Of Symptoms: Hrs Current Symptoms Are (Timing): Still Present Severity: Moderate Pain Scale Rating Of: 4 Recent travel outside of the [place]: No Additional History Per: Patient Past Medical History Reviewed: Historical Data, Nursing Documentation, Vital Signs Vital Signs: Last Vital Signs Temp 98 F 05/06/18 17:55 Pulse 111 H 05/06/18 17:55 Resp 18 05/06/18 17:55 BP 151/86 H 05/06/18 17:55 Pulse Ox 97 05/06/18 17:55 - Medical History PMH: Diabetes, HTN, Hypercholesterolemia Denies: Chronic Kidney Disease Other Surgeries: Hx of surgeries Family History: States: No Known Family Hx - Social History Hx Tobacco Use: No Hx Alcohol Use: Yes Hx Substance Use: No - Immunization History Hx Tetanus Toxoid Vaccination: No Hx Influenza Vaccination: Yes (04/24/2015) Hx Pneumococcal Vaccination: Yes (2012) Review Of Systems Constitutional: Negative for: Fever, Chills Cardiovascular: Negative for: Chest Pain Respiratory: Negative for: Shortness of Breath Gastrointestinal: Positive for: Vomiting, Diarrhea Genitourinary: Negative for: Dysuria Musculoskeletal: Negative for: Back Pain Skin: Negative for: Rash Neurological: Positive for: Dizziness. Negative for: Weakness Psych: Negative for: Anxiety Physical Exam - Physical Exam Appears: Non-toxic Skin: Warm, Dry Head: Normacephalic Eye(s): bilateral: Normal Inspection Oral Mucosa: Moist Neck: Trachea Midline, Supple Chest: Symmetrical Cardiovascular: Rhythm Regular Respiratory: No Rales, No Rhonchi, No Wheezing Gastrointestinal/Abdominal: Bowel Sounds (hyperactive ), Soft, No Tenderness, No Distention Back: Normal Inspection Extremity: Normal ROM Extremity: Bilateral: Atraumatic, Normal Color And Temperature, Normal ROM Pulses: Left Dorsalis Pedis: Normal, Right Dorsalis Pedis: Normal Neurological/Psych: Oriented x3, Normal Speech, Normal Cognition Gait: Steady ED Course And Treatment - Laboratory Results Result Diagrams: 05/06/18 19:35 05/06/18 19:35 ECG: Interpreted By Me, Viewed By Me ECG Rhythm: Sinus Rhythm (89), Nonspecific Changes O2 Sat by Pulse Oximetry: 97 (RA) Pulse Ox Interpretation: Normal - Radiology CXR: Interpreted by Me, Viewed By Me - CT Scan/US CT head Other Rad Studies (CT/US): Read By Radiologist, Radiology Report Reviewed CT/US Interpretation: EXAM: CT Head Without IV contrast. CLINICAL HISTORY: Dizziness, ? syncope. TECHNIQUE: Axial computed tomography images of the head/brain without intravenous contrast. DLP 1048.76. COMPARISON: None provided. FINDINGS: BRAIN. No acute intraparenchymal hemorrhage. No mass lesion. No CT evidence for acute territorial infarct. No midline shift or extra- axial collections. Mild generalized cerebral atrophy is present, as demonstrated by diffuse sulcal and ventricular prominence. VENTRICLES: No hydrocephalus. ORBITS: The orbits are unremarkable. SINUSES AND MASTOIDS: The paranasal sinuses and mastoid air cells are clear. BONES: No fracture. SOFT TISSUES: Unremarkable. IMPRESSION: No acute intracranial abnormality. . Electronically signed on May 06, 2018 9:17:05 PM EDT by: Sharita Lepe M.D., Certified by ABR, Diagnostic Radiology Progress Note: Blood and urine collected and sent to the lab for analysis. CXR, EKG, CT Head scan ordered and reviewed. Disposition Discussed With : Flip Santoro Comment: accepted the pt on his service and took over the care at 9:22 PM Doctor Will See Patient In The: Hospital Counseled Patient/Family Regarding: Studies Performed, Diagnosis - Disposition Disposition: HOSPITALIZED Disposition Time: 19:11 Condition: FAIR Forms: [employer] (Amharic) - POA Present On Arrival: Falls Or Trauma, Poor Glycemic Control - Clinical Impression Clinical Impression: Syncope, Hypovolemia, Dehydration, Diarrhea - Scribe Statement The provider has reviewed the documentation as recorded by the Scribnehemias Humphries All medical record entries made by the Scribe were at my direction and personall y dictated by me. I have reviewed the chart and agree that the record accurately reflects my personal performance of the history, physical exam, medical decision making, and the department course for this patient. I have also personally directed, reviewed, and agree with the discharge instructions and disposition. Decision To Admit - Pt Status Changed To: Hospital Disposition Of: Observation - . Bed Request Type: Telemetry Admitting Physician: Flip Santoro Patient Diagnosis: Syncope, Hypovolemia, Dehydration, Diarrhea
[2018-05-06] MEDS ORDERED: Sodium Chloride 0.9% 1,000 ML IV ONE (19:12)
[2018-05-06] MEDS ORDERED: Sodium Chloride 0.9% 1,000 ML ONE ×2 (19:31→22:26)
[2018-05-06 19:47] LABS: BASO % 0.4 % (0.0-2.0); EOS # 0.1 K/uL (0.0-0.7); EOS % 1.3 % (0.0-4.0); HEMOGLOBIN 15.6 g/dL (12.0-18.0); LYMPH # 1.5 K/uL (1.0-4.3); LYMPH % 15.8 % (20.0-40.0); MEAN CELL VOLUME 87.2 fL (80.0-94.0); MEAN CORPUSCULAR HEMOGLOBIN 29.6 pg (27.0-31.0); MEAN PLATELET VOLUME 9.8 fL (7.2-11.7); MONO # 0.6 K/uL (0.0-0.8); MONO % 6.2 % (0.0-10.0); NEUT # 7.3 K/uL (1.8-7.0); NEUT % 76.3 % (50.0-75.0); NRBC % 0.1 % (0.0-2.0); RBC 5.25 Mil/uL (4.40-5.90); RED CELL DISTRIBUTION WIDTH 14.6 % (11.5-14.5); WHITE BLOOD COUNT 9.6 K/uL (4.8-10.8)
[2018-05-06 19:55] LABS: URINE BILIRUBIN NEGATIVE (NEGATIVE); URINE CLARITY CLEAR (Clear); URINE COLOR YELLOW (YELLOW); URINE GLUCOSE (UA) NORMAL (Normal)
[2018-05-06 19:56] LABS: SQUAMOUS EPITHIAL < 1 /hpf (0-5); URINE BLOOD NEGATIVE (NEGATIVE); URINE LEUKOCYTE ESTERASE TRACE Leu/uL (Negative); URINE PROTEIN NEGATIVE (NEGATIVE); URINE UROBILINOGEN NORMAL mg/dL (0.2-1.0)
[2018-05-06 19:58] LABS: ABG ALLEN TEST POS; ARTERIAL BLOOD GAS HCO3 22.1 mmol/L (21-28); ARTERIAL BLOOD GAS O2 SAT 97.2 % (95-98); ARTERIAL BLOOD GAS PCO2 41 mm/Hg (35-45); ARTERIAL BLOOD GAS PH 7.34 (7.35-7.45); ARTERIAL BLOOD GAS PO2 80 mm/Hg (80-100); ARTERIAL BLOOD GAS TCO2 23.4 mmol/L (22-28)
[2018-05-06 20:02] LABS: ALB/GLOB RATIO 1.4 (1.0-2.1); ALBUMIN 4.7 g/dL (3.5-5.0); CALCIUM 9.7 mg/dl (8.6-10.4)
[2018-05-06 20:07] VITALS: RESP 20
--- NOTE | 2018-05-06 21:42 | CP.PCM.HP ---
Past Patient History - Infectious Disease Hx of Infectious Diseases: None - Past Medical History & Family History Past Medical History?: Yes - Past Social History Smoking Status: Never Smoked - CARDIAC Hx Hypercholesterolemia: Yes Hx Hypertension: Yes - PULMONARY Hx Respiratory Disorders: No - NEUROLOGICAL Hx Neurological Disorder: No - HEENT Hx HEENT Problems: Yes Other/Comment: LEFT GLASS EYE - RENAL Hx Chronic Kidney Disease: No - ENDOCRINE/METABOLIC Hx Endocrine Disorders: Yes Hx Diabetes Mellitus Type 1: Yes - HEMATOLOGICAL/ONCOLOGICAL Hx Blood Disorders: No - INTEGUMENTARY Hx Dermatological Problems: No - MUSCULOSKELETAL/RHEUMATOLOGICAL Hx Musculoskeletal Disorders: Yes Hx Falls: Yes (hx fall feb 2015) - GASTROINTESTINAL Hx Gastrointestinal Disorders: Yes Hx Diarrhea: Yes - GENITOURINARY/GYNECOLOGICAL Hx Genitourinary Disorders: No - PSYCHIATRIC Hx Substance Use: No - SURGICAL HISTORY Hx Surgeries: Yes Hx Eye Surgery: Yes - ANESTHESIA Hx Anesthesia: Yes Hx Anesthesia Reactions: No Hx Malignant Hyperthermia: No Meds Allergies/Adverse Reactions: Allergies Allergy/AdvReac Type Severity Reaction Status Date / Time No Known Allergies Allergy Verified 11/20/16 20:06 Results - Vital Signs Recent Vital Signs: Last Vital Signs Temp 98 F 05/06/18 17:55 Pulse 80 05/06/18 21:29 Resp 20 05/06/18 21:29 BP 106/71 05/06/18 21:29 Pulse Ox 97 05/06/18 21:29 - Labs Result Diagrams: 05/06/18 19:35 05/06/18 19:35 Labs: Laboratory Results - last 24 hr 05/06/18 05/06/18 05/06/18 19:35 19:35 19:35 WBC 9.6 RBC 5.25 Hgb 15.6 Hct 45.8 MCV 87.2 MCH 29.6 MCHC 34.0 RDW 14.6 H Plt Count 208 MPV 9.8 Neut % (Auto) 76.3 H Lymph % (Auto) 15.8 L [place] % (Auto) 6.2 Eos % (Auto) 1.3 Baso % (Auto) 0.4 Neut # (Auto) 7.3 H Lymph # (Auto) 1.5 [place] # (Auto) 0.6 Eos # (Auto) 0.1 Baso # (Auto) 0.0 Puncture Site pCO2 pO2 HCO3 ABG pH ABG Total CO2 ABG O2 Saturation ABG Base Excess Joseph Test ABG Potassium A-a O2 Difference Respiratory Index Glucose Lactate FiO2 Sodium 141 Potassium 4.5 Chloride 105 Carbon Dioxide 22 Anion Gap 19 BUN 36 H Creatinine 2.2 H Est GFR ( Amer) 37 Est GFR (Non-Af Amer) 31 Random Glucose 274 H Calcium 9.7 Total Bilirubin 0.5 AST 21 ALT 21 Alkaline Phosphatase 105 Total Protein 8.0 Albumin 4.7 Globulin 3.4 Albumin/Globulin Ratio 1.4 Arterial Blood Potassium Urine Color Yellow Urine Clarity Clear Urine pH 5.0 Ur Specific [place] 1.015 Urine Protein Negative Urine Glucose (UA) Normal Urine Ketones Negative Urine Blood Negative Urine Nitrate Negative Urine Bilirubin Negative Urine Urobilinogen Normal Ur Leukocyte Esterase Trace Urine WBC (Auto) 6 H Urine RBC (Auto) 1 Ur Squamous Epith Cells < 1 B-Hydroxybutyrate 0.06 05/06/18 19:50 WBC RBC Hgb Hct MCV MCH MCHC RDW Plt Count MPV Neut % (Auto) Lymph % (Auto) [place] % (Auto) Eos % (Auto) Baso % (Auto) Neut # (Auto) Lymph # (Auto) [place] # (Auto) Eos # (Auto) Baso # (Auto) Puncture Site Rradial pCO2 41 pO2 80 HCO3 22.1 ABG pH 7.34 L ABG Total CO2 23.4 ABG O2 Saturation 97.2 ABG Base Excess -3.5 L Joseph Test Pos ABG Potassium 4.0 A-a O2 Difference 18.0 Respiratory Index 0.2 Glucose 268 H Lactate 1.5 FiO2 21.0 Sodium 137.0 Potassium Chloride 107.0 Carbon Dioxide Anion Gap BUN Creatinine Est GFR ( Amer) Est GFR (Non-Af Amer) Random Glucose Calcium Total Bilirubin AST ALT Alkaline Phosphatase Total Protein Albumin Globulin Albumin/Globulin Ratio Arterial Blood Potassium 4.0 Urine Color Urine Clarity Urine pH Ur Specific [place] Urine Protein Urine Glucose (UA) Urine Ketones Urine Blood Urine Nitrate Urine Bilirubin Urine Urobilinogen Ur Leukocyte Esterase Urine WBC (Auto) Urine RBC (Auto) Ur Squamous Epith Cells B-Hydroxybutyrate
[2018-05-06] MEDS: (Novolin R) Insulin Human Regular 100 units/ml vial SC SCH (22:19)
[2018-05-06 22:20] LABS: INR 1.1; PROTHROMBIN TIME 12.2 SECONDS (9.7-12.2)
[2018-05-06] MEDS: Sodium Chloride 0.9% 1,000 ML IV SCH (22:38)
[2018-05-07 08:19] LABS: CALCIUM 9.1 mg/dl (8.6-10.4)
--- NOTE | 2018-05-07 08:38 | RAD ---
Date of service: 05/06/2018 HISTORY: Diabetic COMPARISON: No prior. FINDINGS: LUNGS: Mild venous congestion. PLEURA: No significant pleural effusion identified, no pneumothorax apparent. CARDIOVASCULAR: No atherosclerotic calcification present Normal. OSSEOUS STRUCTURES: No significant abnormalities. VISUALIZED UPPER ABDOMEN: Normal. OTHER FINDINGS: None. IMPRESSION: Mild venous congestion.
[2018-05-07] MEDS: (Novolin R) Insulin Human Regular 100 units/ml vial SC SCH ×4 (09:16→21:55)
--- NOTE | 2018-05-07 09:18 | CT ---
Date of service: 05/06/2018 PROCEDURE: CT HEAD WITHOUT CONTRAST. HISTORY: Dizziness,? Syncope COMPARISON: 03/16/2014. TECHNIQUE: Axial computed tomography images were obtained through the head/brain without intravenous contrast. Radiation dose: Total exam DLP = 1048.76 mGy-cm. This CT exam was performed using one or more of the following dose reduction techniques: Automated exposure control, adjustment of the mA and/or kV according to patient size, and/or use of iterative reconstruction technique. FINDINGS: HEMORRHAGE: No intracranial hemorrhage. BRAIN: There are mild chronic microangiopathic changes. There is no mass, mass effect or abnormal extra-axial fluid collection. There is no territorial infarction. The midline sagittal structures are normal. VENTRICLES: There is mild age-related global parenchymal volume loss and proportionate enlargement of the ventricles and cortical sulci. CALVARIUM: There is no calvarial fracture or extracranial soft tissue swelling. PARANASAL SINUSES: Predominantly clear. MASTOID AIR CELLS: Predominantly clear. OTHER FINDINGS: There are postsurgical changes in the right globe and prosthesis in the left globe. IMPRESSION: No acute intracranial abnormality. Mild chronic microangiopathic changes and mild global parenchymal volume loss. A preliminary report was provided by [employer].
[2018-05-07] MEDS ORDERED: Latanoprost 2.5 ml Opht Soln OD SCH (10:00)
[2018-05-07] MEDS: (Lantus) Insulin Glargine, Recombinant SC SCH (10:09)
[2018-05-07] MEDS: Sodium Chloride 0.9% 1,000 ML IV SCH ×2 (10:11→21:55)
--- NOTE | 2018-05-07 23:55 | CP.PCM.PN ---
Subjective - Subjective Subjective: dictated Objective - Vital Signs/Intake and Output Vital Signs (last 24 hours): Temp Pulse Resp BP Pulse Ox 98 F 84 20 147/80 97 05/07/18 16:21 05/07/18 16:21 05/07/18 16:21 05/07/18 16:21 05/07/18 16:21 Intake and Output: 05/07/18 05/08/18 18:59 06:59 Intake Total 480 Output Total 300 Balance 180 - Medications Medications: Current Medications Aspirin (Aspirin Chewable) 81 mg PO DAILY [facility] Last Admin: 05/07/18 10:10 Dose: 81 mg Heparin Sodium (Porcine) (Heparin) 5,000 units SC Q8 [facility] Last Admin: 05/07/18 22:35 Dose: 5,000 units Sodium Chloride (Sodium Chloride 0.9%) 1,000 mls @ 100 mls/hr IV .Q10H [facility] Last Admin: 05/07/18 21:55 Dose: Not Given Insulin Glargine (Lantus) 20 unit SC DAILY [facility] Last Admin: 05/07/18 10:09 Dose: 20 units Insulin Human Regular (Novolin R) 0 unit SC ACHS [facility]; Protocol Last Admin: 05/07/18 21:55 Dose: Not Given Latanoprost (Xalatan Opht) 0 ml OD DAILY [facility] Lisinopril (Zestril) 10 mg PO DAILY [facility] Last Admin: 05/07/18 10:10 Dose: 10 mg Metformin HCl (Glucophage) 850 mg PO TID [facility] Last Admin: 05/07/18 18:52 Dose: 850 mg Ondansetron HCl (Zofran Inj) 4 mg IVP Q6 PRN PRN Reason: Nausea/Vomiting Rosuvastatin Calcium (Crestor) 5 mg PO HS [facility] Last Admin: 05/07/18 22:35 Dose: 5 mg Sitagliptin Phosphate (Januvia) 50 mg PO DAILY [facility] Last Admin: 05/07/18 10:10 Dose: 50 mg - Labs Labs: 05/06/18 19:35 05/07/18 07:49 PT 12.2 SECONDS (9.7-12.2) 05/06/18 22:00 INR 1.1 05/06/18 22:00 APTT 28 SECONDS (21-34) 05/06/18 22:00
[2018-05-08] MEDS: Sodium Chloride 0.9% 1,000 ML IV SCH (03:46)
[2018-05-08] MEDS: (Novolin R) Insulin Human Regular 100 units/ml vial SC SCH ×2 (07:48→12:30)
--- NOTE | 2018-05-08 07:50 | PN ---
DATE: 05/07/2018 SUBJECTIVE: He still feels weak, dizzy. He is on IV fluids. His mouth feels dry, and he feels nauseous. No fever. No chills. PHYSICAL EXAMINATION: VITAL SIGNS: Blood pressure 147/80, pulse 84, respiratory rate 20, temperature 98. LUNGS: Clear. CVS: S1, S2, regular. ABDOMEN: Soft and nontender. Bowel sounds . ASSESSMENT: 1. Acute gastroenteritis. 2. Dehydration with prerenal azotemia. 3. Type 2 diabetes. 4. Hypertension. PLAN: Continue IV fluid, Accu-Chek sliding scale, antiemetics; and monitor BUN and creatinine till the patient's creatinine is down. Flip Santoro MD
[2018-05-08 08:31] LABS: BLOOD UREA NITROGEN 25 mg/dL (9-20); GFR NON-AFRICAN AMERICAN 52
[2018-05-08] MEDS: (Lantus) Insulin Glargine, Recombinant SC SCH (09:39)
[2018-05-08] MEDS ORDERED: Latanoprost 2.5 ml Opht Soln OD SCH (10:00)
[2018-05-08 11:11] LABS: BASO # 0.1 K/uL (0.0-0.2); BASO % 1.2 % (0.0-2.0); EOS # 0.1 K/uL (0.0-0.7); EOS % 1.6 % (0.0-4.0); HEMOGLOBIN 14.9 g/dL (12.0-18.0); LYMPH # 1.4 K/uL (1.0-4.3); LYMPH % 23.6 % (20.0-40.0); MEAN CELL VOLUME 87.5 fL (80.0-94.0); MEAN CORPUSCULAR HEMOGLOBIN 28.7 pg (27.0-31.0); MEAN CORPUSCULAR HGB CONC 32.8 g/dL (33.0-37.0); MEAN PLATELET VOLUME 9.3 fL (7.2-11.7); MONO # 0.3 K/uL (0.0-0.8); MONO % 4.7 % (0.0-10.0); NEUT # 4.2 K/uL (1.8-7.0); NEUT % 68.9 % (50.0-75.0); NRBC % 0.1 % (0.0-2.0); RBC 5.18 Mil/uL (4.40-5.90); RED CELL DISTRIBUTION WIDTH 14.3 % (11.5-14.5); WHITE BLOOD COUNT 6.1 K/uL (4.8-10.8)
--- NOTE | 2018-05-08 15:18 | CP.PCM.PN ---
Subjective - Date & Time of Evaluation Date of Evaluation: 05/08/18 Time of Evaluation: 11:00 - Subjective Subjective: Patient seen today, denies any N/V/ ,abdominal pain improved and reported 3 loose stool before breakfast and no BM after breakfast vss and labs reviewed and stable Objective - Vital Signs/Intake and Output Vital Signs (last 24 hours): Temp Pulse Resp BP Pulse Ox 97.5 F L 85 20 128/81 95 05/08/18 07:00 05/08/18 10:32 05/08/18 07:00 05/08/18 07:00 05/08/18 10:32 Intake and Output: 05/08/18 05/08/18 06:59 18:59 Intake Total 800 Balance 800 - Medications Medications: Current Medications Aspirin (Aspirin Chewable) 81 mg PO DAILY [facility] Last Admin: 05/08/18 09:39 Dose: 81 mg Heparin Sodium (Porcine) (Heparin) 5,000 units SC Q8 [facility] Last Admin: 05/08/18 14:20 Dose: 5,000 units Sodium Chloride (Sodium Chloride 0.9%) 1,000 mls @ 100 mls/hr IV .Q10H [facility] Last Admin: 05/08/18 03:46 Dose: 100 mls/hr Insulin Glargine (Lantus) 20 unit SC DAILY [facility] Last Admin: 05/08/18 09:39 Dose: 20 units Insulin Human Regular (Novolin R) 0 unit SC ACHS [facility]; Protocol Last Admin: 05/08/18 12:30 Dose: 1 unit Latanoprost (Xalatan Opht) 0 ml OD DAILY [facility] Last Admin: 05/08/18 09:41 Dose: Not Given Lisinopril (Zestril) 10 mg PO DAILY [facility] Last Admin: 05/08/18 09:38 Dose: 10 mg Metformin HCl (Glucophage) 850 mg PO TID [facility] Last Admin: 05/08/18 14:20 Dose: 850 mg Ondansetron HCl (Zofran Inj) 4 mg IVP Q6 PRN PRN Reason: Nausea/Vomiting Rosuvastatin Calcium (Crestor) 5 mg PO HS [facility] Last Admin: 05/07/18 22:35 Dose: 5 mg Sitagliptin Phosphate (Januvia) 50 mg PO DAILY [facility] Last Admin: 05/08/18 09:39 Dose: 50 mg - Labs Labs: 05/08/18 11:05 05/08/18 08:07 PT 12.2 SECONDS (9.7-12.2) 05/06/18 22:00 INR 1.1 05/06/18 22:00 APTT 28 SECONDS (21-34) 05/06/18 22:00 - Constitutional Appears: Well, Non-toxic, No Acute Distress - Respiratory Exam Respiratory Exam: Clear to Ausculation Bilateral, NORMAL BREATHING PATTERN - GI/Abdominal Exam GI & Abdominal Exam: Soft - Neurological Exam Neurological Exam: Alert, Awake, Oriented x3 Assessment and Plan - Assessment and Plan (Free Text) Assessment: A/P 57 yr old female with pmhx of Diabetes, HTN, Hypercholesterolemia admitted with abdominal pain, diarrhea and syncope , dehydration CT head -No acute intracranial abnormality. Mild chronic microangiopathic changes and mild global parenchymal volume loss. patient clinically improved with IVF and BS stable diarrhea improved and tolerated diet D/w Dr. Santoro cleared for discharge home today and f/u with Dr. Santoro office in 1 week Discharge plan discussed with patient who understands and agrees with plan patient instructed to returns to ED if symptoms returns or worsening symptoms
[2018-05-08 15:41] VITALS: BP 136/80; PULSE 70; TEMP 98.1; O2SAT 97
--- NOTE | 2018-05-08 19:14 | CARD ---
APPROVED REPORT Date of service: 05/06/2018 EKG Measurement Heart [id number] <Conclusion> Normal sinus rhythm Nonspecific T wave abnormality Abnormal ECG
--- NOTE | 2018-05-08 22:59 | CP.PCM.DIS ---
Provider - Provider Date of Admission: 05/06/18 21:20 Attending physician: Flip Santoro MD Hospital Course - Lab Results Lab Results: Micro Results 05/06/18 09:16 Blood Blood Culture - Preliminary NO GROWTH AFTER 24 HOURS 05/06/18 19:12 Blood Blood Culture - Preliminary NO GROWTH AFTER 24 HOURS Most Recent Lab Values WBC 6.1 K/uL (4.8-10.8) 05/08/18 11:05 RBC 5.18 Mil/uL (4.40-5.90) 05/08/18 11:05 Hgb 14.9 g/dL (12.0-18.0) 05/08/18 11:05 Hct 45.3 % (35.0-51.0) 05/08/18 11:05 MCV 87.5 fL (80.0-94.0) 05/08/18 11:05 MCH 28.7 pg (27.0-31.0) 05/08/18 11:05 MCHC 32.8 g/dL (33.0-37.0) L 05/08/18 11:05 RDW 14.3 % (11.5-14.5) 05/08/18 11:05 Plt Count 194 K/uL (130-400) 05/08/18 11:05 MPV 9.3 fL (7.2-11.7) 05/08/18 11:05 Neut % (Auto) 68.9 % (50.0-75.0) 05/08/18 11:05 Lymph % (Auto) 23.6 % (20.0-40.0) 05/08/18 11:05 [place] % (Auto) 4.7 % (0.0-10.0) 05/08/18 11:05 Eos % (Auto) 1.6 % (0.0-4.0) 05/08/18 11:05 Baso % (Auto) 1.2 % (0.0-2.0) 05/08/18 11:05 Neut # (Auto) 4.2 K/uL (1.8-7.0) 05/08/18 11:05 Lymph # (Auto) 1.4 K/uL (1.0-4.3) 05/08/18 11:05 [place] # (Auto) 0.3 K/uL (0.0-0.8) 05/08/18 11:05 Eos # (Auto) 0.1 K/uL (0.0-0.7) 05/08/18 11:05 Baso # (Auto) 0.1 K/uL (0.0-0.2) 05/08/18 11:05 PT 12.2 SECONDS (9.7-12.2) 05/06/18 22:00 INR 1.1 05/06/18 22:00 APTT 28 SECONDS (21-34) 05/06/18 22:00 Puncture Site Rradial 05/06/18 19:50 pCO2 41 mm/Hg (35-45) 05/06/18 19:50 pO2 80 mm/Hg (80-100) 05/06/18 19:50 HCO3 22.1 mmol/L (21-28) 05/06/18 19:50 ABG pH 7.34 (7.35-7.45) L 05/06/18 19:50 ABG Total CO2 23.4 mmol/L (22-28) 05/06/18 19:50 ABG O2 Saturation 97.2 % (95-98) 05/06/18 19:50 ABG Base Excess -3.5 mmol/L (-2.0-3.0) L 05/06/18 19:50 Joseph Test Pos 05/06/18 19:50 ABG Potassium 4.0 mmol/L (3.6-5.2) 05/06/18 19:50 A-a O2 Difference 18.0 mm/Hg 05/06/18 19:50 Respiratory Index 0.2 05/06/18 19:50 Sodium 137.0 mmol/l (132-148) 05/06/18 19:50 Chloride 107.0 mmol/L (98-107) 05/06/18 19:50 Glucose 268 mg/dl (75-110) H 05/06/18 19:50 Lactate 1.5 mmol/L (0.7-2.1) 05/06/18 19:50 FiO2 21.0 % 05/06/18 19:50 Sodium 143 mmol/L (132-148) 05/08/18 08:07 Potassium 4.7 mmol/L (3.6-5.2) 05/08/18 08:07 Chloride 109 mmol/L (98-107) H 05/08/18 08:07 Carbon Dioxide 23 mmol/L (22-30) 05/08/18 08:07 Anion Gap 16 (10-20) 05/08/18 08:07 BUN 25 mg/dL (9-20) H 05/08/18 08:07 Creatinine 1.4 mg/dL (0.8-1.5) 05/08/18 08:07 Est GFR ( Amer) > 60 05/08/18 08:07 Est GFR (Non-Af Amer) 52 05/08/18 08:07 POC Glucose (mg/dL) 186 mg/dL (65-110) H 05/08/18 11:12 Random Glucose 148 mg/dL (75-110) H 05/08/18 08:07 Calcium 9.0 mg/dl (8.6-10.4) 05/08/18 08:07 Total Bilirubin 0.5 mg/dL (0.2-1.3) 05/06/18 19:35 AST 21 U/L (17-59) 05/06/18 19:35 ALT 21 U/L (21-72) 05/06/18 19:35 Alkaline Phosphatase 105 U/L (38-126) 05/06/18 19:35 Total Protein 8.0 g/dL (6.3-8.3) 05/06/18 19:35 Albumin 4.7 g/dL (3.5-5.0) 05/06/18 19:35 Globulin 3.4 gm/dL (2.2-3.9) 05/06/18 19:35 Albumin/Globulin Ratio 1.4 (1.0-2.1) 05/06/18 19:35 Arterial Blood Potassium 4.0 mmol/L (3.6-5.2) 05/06/18 19:50 Urine Color Yellow (YELLOW) 05/06/18 19:35 Urine Clarity Clear (Clear) 05/06/18 19:35 Urine pH 5.0 (5.0-8.0) 05/06/18 19:35 Ur Specific [place] 1.015 (1.003-1.030) 05/06/18 19:35 Urine Protein Negative mg/dL (NEGATIVE) 05/06/18 19:35 Urine Glucose (UA) Normal mg/dL (Normal) 05/06/18 19:35 Urine Ketones Negative mg/dL (NEGATIVE) 05/06/18 19:35 Urine Blood Negative (NEGATIVE) 05/06/18 19:35 Urine Nitrate Negative (NEGATIVE) 05/06/18 19:35 Urine Bilirubin Negative (NEGATIVE) 05/06/18 19:35 Urine Urobilinogen Normal mg/dL (0.2-1.0) 05/06/18 19:35 Ur Leukocyte Esterase Trace Ciro/uL (Negative) 05/06/18 19:35 Urine WBC (Auto) 6 /hpf (0-5) H 05/06/18 19:35 Urine RBC (Auto) 1 /hpf (0-3) 05/06/18 19:35 Ur Squamous Epith Cells < 1 /hpf (0-5) 05/06/18 19:35 B-Hydroxybutyrate 0.06 mM (0.02-0.27) 05/06/18 19:35 Discharge Plan - Discharge Medications Prescriptions: Blood-Glucose Meter [Accu-Chek Sepideh Plus] 1 each TID #1 each Blood Sugar Diagnostic [Accu-Chek Sepideh Plus] 1 each TID #100 strip Lancing Device/Lancets [Accu-Chek Multiclix Lancet Kit] 1 each TID #100 kit - Follow Up Plan Condition: FAIR Disposition: HOME/ ROUTINE Instructions: Type 2 Diabetes, High Blood Pressure in Adults, Dehydration, Adult (DC), Diarrhea and Traveler's Diarrhea, Adult (DC), Syncope (DC) Additional Instructions: Please f/u with Dr. Santoro office in 1 week continue medication as per med. rec. Please check your BS 2/day and record and bring to Dr. 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
--- NOTE | 2018-05-09 03:29 | DS ---
ADMISSION DIAGNOSES: Weakness, dizziness. DISCHARGE DIAGNOSES: 1. Dehydration. 2. Acute gastroenteritis. 3. Type 2 diabetes. 4. Hypertension. HISTORY OF PRESENT ILLNESS: This is a 57-year-old -[place] male with history of type 2 diabetes, hypertension, hyperlipidemia who is compliant with his diet, medication and followup. The day before the admission, he had some food from outside, and he started feeling sick right after he ate the food, he started getting weak, dizzy, tired and fatigued; fever, chills, rigors, nausea. No vomiting. He had no loose, watery stools. He had abdominal pain, nausea, vomiting. He denies any polyuria, polydipsia, polyphagia. He denied any history of hematuria, pyuria. The patient was admitted to the floor, started on IV fluids, Accu-Cheks, sliding scale Regular, and the patient did well, he improved, and he is being discharged. His creatinine went down. PHYSICAL EXAMINATION: VITAL SIGNS: Blood pressure 136/80, pulse 70, respiratory rate 20, temperature 98.1. LUNGS: Clear. ABDOMEN: Soft. Nontender. Bowel sounds are positive. ROPE TIER: Awake, alert, oriented x3. ASSESSMENT: 1. Dehydration. 2. Gastroenteritis. 3. Diabetes. 4. Hypertension. PLAN: Admit. Detailed orders written. Seen and examined. Flip Santoro MD
== END 2018-05-08 16:05 | disposition home or self-care (01) ==
LOC: C.ER 17:44 → C.9E 21:20 → C.5S 22:30
PROVIDERS: ADMIT Internal Medicine; ATTEND Internal Medicine
DX: E86.0 Dehydration (principal); E86.1 Hypovolemia; I10 Essential (primary) hypertension; K52.9 Noninfective gastroenteritis and colitis, unspecified; Z79.4 Long term (current) use of insulin; E11.65 Type 2 diabetes mellitus with hyperglycemia; E11.51 Type 2 diabetes mellitus with diabetic peripheral angiopathy without gangrene; E78.00 Pure hypercholesterolemia, unspecified; E78.5 Hyperlipidemia, unspecified
CPT/HCPCS: 36415; 70450; 71045; 80048; 80053; 81001; 82009; 82803; 82948; 85025; 85610; 85730; 87040; 93005; 96360; 96361; 96372; 99285; G0378; J1644; J7030